=== PATIENT | female | born 1975 | race African-American/Black ===

== ENCOUNTER 2024-12-01 13:35 | Inpatient (IN) | payer BC, OTHER ==
[~2024-12-01] VITALS: Ht 165.1 cm; Wt 60.8 kg
[2024-12-01] MEDS: DEXTROSE 50% WATER 50ML SYRINGE IV ONE (14:12)
[2024-12-01] MEDS: SODIUM CHLORIDE 0.9% 1,000 ML IV ONE (14:12)
[2024-12-01 14:31] LABS: BASOPHILS % 0.6 % (0.0-2.0); EOSINOPHILS % 1.4 % (0.0-5.0); HEMATOCRIT. 46.4 % (36.0-48.0); HEMOGLOBIN. 14.5 g/dL (12.0-16.0); LYMPHOCYTES % 28.2 % (20.0-50.0); MEAN PLATELET VOLUME 8.3 fl (7.4-10.4); MONOCYTES % 6.4 % (2.0-8.0); NEUTROPHILS % 63.4 % (40.0-76.0); PLATELET 453 x1000/uL (130-400); RED BLOOD CELL COUNT 5.23 mill/uL (4.2-5.4); RED CELL DISTRIBUTION WIDTH 17.9 % (11.6-14.6)
[2024-12-01 14:58] LABS: CLARITY URINE CLEAR (CLEAR); COLOR URINE YELLOW (YELLOW); GLUCOSE URINE 3+ (NEGATIVE); KETONES URINE NEGATIVE (NEGATIVE); LEUKOCYTE ESTERASE URINE 1+ (NEGATIVE); NITRITE URINE NEGATIVE (NEGATIVE); OCCULT BLOOD URINE NEGATIVE (NEGATIVE); PH URINE 8.0 (4.5-8.0); PROTEIN URINE 3+ (NEGATIVE); SPECIFIC GRAVITY URINE 1.015 (1.005-1.030); UROBILINOGEN URINE 0.2 E.U./dL (0.2-1.0)
[2024-12-01 15:03] LABS: HCG SCREEN NEGATIVE
[2024-12-01] MEDS: MORPHINE SULFATE 2 MG/ML INJ (NOT FOR IM USE) IV SCH (15:06)
[2024-12-01 15:25] LABS: *AMPHETAMINES SCREEN URINE NEGATIVE (NEGATIVE); *BARBITURATES SCREEN URINE NEGATIVE (NEGATIVE); *BENZODIAZEPINES SCREEN URINE NEGATIVE (NEGATIVE); *COCAINE SCREEN URINE NEGATIVE (NEGATIVE); METHADONE URINE SCREEN NEGATIVE (NEGATIVE)
[2024-12-01 15:26] LABS: CANNABINOID URINE SCREEN PRESUMPTIVE POSITIVE (NEGATIVE); ECSTASY MDMA SCREEN URINE NEGATIVE (NEGATIVE); OPIATES URINE SCREEN NEGATIVE (NEGATIVE); PHENCYCLIDINE URINE SCREEN NEGATIVE (NEGATIVE)
[2024-12-01 15:27] LABS: SQUAMOUS EPITHELIAL CELL URINE FEW /lpf (RARE/1+)
[2024-12-01 15:28] LABS: WBC URINE 50-100 /hpf (0-2)
[2024-12-01 15:29] LABS: BACTERIA URINE 2+; RBC URINE NONE SEEN /hpf (0-2)
[2024-12-01] MEDS: CEFTRIAXONE 1GM/50ML 50 ML IV SCH (16:27)
[2024-12-01] MEDS: HYDRALAZINE 20MG/ML VIAL IV SCH (16:27)
[2024-12-01 16:32] LABS: CREATININE 1.0 mg/dL (0.6-1.0); UREA NITROGEN BLOOD 16 mg/dL (9-23)
[2024-12-01 16:33] LABS: ETHANOL BLOOD < 10 mg/dL (<10)
[2024-12-01 16:34] LABS: ASPARTATE AMINOTRANSFERASE 28 IU/L (<34); BILIRUBIN DIRECT 0.2 mg/dL (<=3.0)
[2024-12-01 16:35] LABS: BILIRUBIN TOTAL 0.6 mg/dL (0.1-1.0); PROTEIN TOTAL 7.2 g/dL (6.0-8.3)
[2024-12-01 16:39] LABS: TROPONIN I HIGH SENSITIVITY 85 ng/L (3.0-34)
[2024-12-01] MEDS: LOSARTAN 100 MG TABLET PO ONE (16:44)
[2024-12-01] MEDS: POTASSIUM CHLORIDE 20MEQ TABLET SR PO SCH (17:03)
[2024-12-01] MEDS ORDERED: DOCUSATE SODIUM 100MG CAPSULE PO PRN (17:30)
[2024-12-01] MEDS ORDERED: CEFTRIAXONE 1GM/50ML 50 ML IV ONE (17:30)
[2024-12-01] MEDS ORDERED: ACETAMINOPHEN 325MG TABLET PO PRN ×2 (17:30)
[2024-12-01 17:40] VITALS: BP 181/91; PULSE 110; RESP 20; TEMP 36.2; O2SAT 95
[2024-12-01] MEDS ORDERED: IPRATROPIUM/ALBUTEROL 0.5-3(2.5)MG/3ML NEB HHN SCH (17:45)
[2024-12-01] MEDS ORDERED: CLONIDINE 0.1MG TABLET PO PRN (17:45)
[2024-12-01] MEDS: INSULIN LISPRO 100 UNITS/ML SUBCUT SCH (17:50)
[2024-12-01 18:08] LABS: BG BASE EXCESS 6.5 mmol/L (-2.0-3.0); BG CARBOXYHEMOGLOBIN 1.3 % (0.5-1.5); BG DEOXYHEMOGLOBIN 10.7 % (0.0-5.0); BG FRACTION INSPIRED OXYGEN 36; BG HCO3 ACT 29.3 mmol/L (21.0-28.0); BG METHEMOGLOBIN 0.3 % (0.5-1.5); BG OXYGEN SATURATION 89.1 % (94.0-98.0); BG OXYHEMOGLOBIN 87.7 % (94.0-98.0); BG PCO2 35.6 mmHg (32.0-45.0); BG PH 7.533 (7.350-7.450); BG PO2 50.4 mmHg (83.0-108.0); BG SAMPLE SITE RIGHT RADIAL; BG TOTAL HEMOGLOBIN 12.8 g/dL (12.0-16.0); BG VENT MODE NASAL CANNULA
[2024-12-01] MEDS: ASPIRIN 325MG EC TABLET PO NR (18:35)
[2024-12-01] MEDS: FUROSEMIDE 100MG/10ML VIAL IVP SCH (18:35)
[2024-12-01] MEDS: CLOPIDOGREL 75MG TABLET PO SCH (18:36)
[2024-12-01] MEDS: CLONIDINE 0.1MG TABLET PO PRN (18:36)
[2024-12-01] MEDS: SPIRONOLACTONE 25MG TABLET PO SCH (18:36)
[2024-12-01] MEDS: MAGNESIUM 2 G PREMIX 50 ML IV SCH (18:36)
[2024-12-01] MEDS: KCL 20MEQ/100ML PREMIX 100 ML IV SCH (18:55)
[2024-12-01] MEDS: DEXTROSE 50% WATER 50ML SYRINGE IV PRN (19:00)
[2024-12-01 20:00] VITALS: BP 159/77; PULSE 95; RESP 20; TEMP 36.1; O2SAT 99
[2024-12-01] MEDS: BLOOD SUGAR DIAGNOSTIC STRIP TEST SCH (21:58)
[2024-12-01] MEDS: ATORVASTATIN CALCIUM 40MG TABLET PO SCH (21:58)
[2024-12-01] MEDS: KETOROLAC 15MG/ML VIAL IV PRN (21:59)
[2024-12-01] MEDS: ENOXAPARIN 40MG/0.4ML SYR SUBCUT SCH (22:00)
[2024-12-01 22:28] LABS: PHOSPHORUS 2.5 mg/dL (2.5-4.9)
[2024-12-01 22:29] LABS: BG BASE EXCESS 7.3 mmol/L (-2.0-3.0); BG CARBOXYHEMOGLOBIN 0.8 % (0.5-1.5); BG DEOXYHEMOGLOBIN 3.4 % (0.0-5.0); BG FLOW(L/min) 4.00 L/min; BG FRACTION INSPIRED OXYGEN 36; BG HCO3 ACT 31.3 mmol/L (21.0-28.0); BG METHEMOGLOBIN 0.0 % (0.5-1.5); BG OXYGEN SATURATION 96.6 % (94.0-98.0); BG OXYHEMOGLOBIN 95.8 % (94.0-98.0); BG PCO2 41.7 mmHg (32.0-45.0); BG PH 7.493 (7.350-7.450); BG PO2 82.2 mmHg (83.0-108.0); BG SAMPLE SITE LEFT BRACHIAL; BG TOTAL HEMOGLOBIN 12.0 g/dL (12.0-16.0); BG VENT MODE NASAL CANNULA
[2024-12-01 23:43] VITALS: BP 159/77; PULSE 95; RESP 18; TEMP 36.0844
[2024-12-02] VITALS: BP 142/74; PULSE 94; RESP 20; TEMP 36.6; O2SAT 98
[2024-12-02] MEDS: GLUCAGON,HUMAN RECOMBINANT 1MG/VIAL IM NR (01:03)
[2024-12-02] MEDS: DEXT 10% WATER 1,000 ML IV SCH (02:07)
[2024-12-02 03:01] LABS: CREATINE KINASE MB FRACTION 3.4 ng/mL (0.5-3.6)
[2024-12-02 04:00] VITALS: BP 150/58; PULSE 98; RESP 20; TEMP 36.3; O2SAT 97
[2024-12-02 04:31] LABS: TROPONIN I HIGH SENSITIVITY 85.0 ng/L (3.0-34)
[2024-12-02] MEDS: FUROSEMIDE 40MG/4ML VIAL IVP SCH (06:56)
[2024-12-02] MEDS: LEVOTHYROXINE SODIUM 100MCG TABLET PO SCH (06:57)
[2024-12-02 08:00] VITALS: BP 132/80; PULSE 95; RESP 16; TEMP 36.2; O2SAT 100
[2024-12-02 10:30] LABS: MEAN PLATELET VOLUME 8.9 fl (7.4-10.4); PLATELET 376 x1000/uL (130-400); RED BLOOD CELL COUNT 3.76 mill/uL (4.2-5.4); RED CELL DISTRIBUTION WIDTH 17.5 % (11.6-14.6)
[2024-12-02 10:50] LABS: HEMATOCRIT. 32.2 % (36.0-48.0); HEMOGLOBIN. 10.3 g/dL (12.0-16.0)
[2024-12-02] MEDS ORDERED: NALOXONE HCL 0.4MG/ML VIAL IV PRN (11:00)
[2024-12-02] MEDS ORDERED: DEXTROSE 50% WATER 50ML SYRINGE IV PRN (11:00)
[2024-12-02 11:11] LABS: TROPONIN I HIGH SENSITIVITY 87.0 ng/L (3.0-34)
[2024-12-02 11:15] LABS: CREATININE 1.2 mg/dL (0.6-1.0)
[2024-12-02 11:16] LABS: UREA NITROGEN BLOOD 24.0 mg/dL (9-23)
[2024-12-02 11:21] LABS: CREATINE KINASE MB FRACTION 2.5 ng/mL (0.5-3.6)
[2024-12-02] MEDS: ASPIRIN 81MG TABLET PO SCH (11:21)
[2024-12-02] MEDS: PANTOPRAZOLE SODIUM 40 MG/VIAL IV SCH (11:21)
[2024-12-02] MEDS: POTASSIUM CHLORIDE 20MEQ/PACKET PO SCH ×2 (11:21→14:08)
[2024-12-02 11:23] LABS: T4 FREE 1.41 ng/dL (0.89-1.76)
[2024-12-02 12:00] VITALS: BP 135/89; PULSE 105; RESP 18; TEMP 37.2; O2SAT 98
[2024-12-02 12:02] LABS: HEPATITIS C AB NON REACTIVE (Neg) (Negative)
[2024-12-02] MEDS: BLOOD SUGAR DIAGNOSTIC STRIP TEST SCH (12:20)
[2024-12-02] MEDS: INSULIN LISPRO 100 UNITS/ML SUBCUT SCH (12:50)
[2024-12-02] MEDS: ISOSORBIDE MONONITRATE 30MG TABLET SR 24HR PO SCH (14:07)
[2024-12-02 16:00] VITALS: BP 138/85; PULSE 103; RESP 18; TEMP 36.9; O2SAT 98
[2024-12-02 16:36] LABS: LYMPHOCYTES % MANUAL 44.0 % (20.0-60.0); MONOCYTES % MANUAL 6.0 % (2.0-8.0); NEUTROPHILS % MANUAL 50.0 % (45.0-75.0); PLATELET ESTIMATE NORMAL
[2024-12-02] MEDS: CEFTRIAXONE 1GM/50ML 50 ML IV SCH (18:52)
[2024-12-02] MEDS: HYDROCODONE/ACETAMINOPHEN 5/325MG TABLET PO PRN (18:55)
[2024-12-02 20:00] VITALS: BP 131/82; PULSE 110; RESP 20; TEMP 37.1; O2SAT 97
[2024-12-02 22:47] LABS: TROPONIN I HIGH SENSITIVITY 70 ng/L (3.0-34)
[2024-12-03] VITALS (11 sets, daily range): BP systolic 134–166; BP diastolic 80–107; PULSE 102–114; RESP 15–20; TEMP 36.1–36.8; O2SAT 95–99
[2024-12-03] MEDS: IPRATROPIUM/ALBUTEROL 0.5-3(2.5)MG/3ML NEB HHN SCH (00:28)
[2024-12-03 03:38] LABS: TROPONIN I HIGH SENSITIVITY 70 ng/L (3.0-34)
[2024-12-03] MEDS ORDERED: SPIRONOLACTONE 25MG TABLET PO SCH (09:00)
[2024-12-03 10:09] LABS: CREATININE 1.2 mg/dL (0.6-1.0)
[2024-12-03 10:11] LABS: UREA NITROGEN BLOOD 23.0 mg/dL (9-23)
[2024-12-03 10:22] LABS: HEMATOCRIT. 28.5 % (36.0-48.0); HEMOGLOBIN. 9.2 g/dL (12.0-16.0); MEAN PLATELET VOLUME 9.3 fl (7.4-10.4); PLATELET 362 x1000/uL (130-400); RED BLOOD CELL COUNT 3.38 mill/uL (4.2-5.4); RED CELL DISTRIBUTION WIDTH 17.5 % (11.6-14.6)
[2024-12-03 10:28] LABS: TRIGLYCERIDE 88.0 mg/dL (0-150)
[2024-12-03 10:29] LABS: LDL CHOLESTEROL 94.0 mg/dL (5-100)
[2024-12-03 10:33] LABS: T4 FREE 1.21 ng/dL (0.89-1.76)
[2024-12-03 11:48] LABS: ERYTHROCYTE SEDIMENTATION RATE 20 mm/hr (0-20)
[2024-12-03] MEDS ORDERED: POTASSIUM CHLORIDE 40 MEQ in DEXT 5% WATER 230 ML IV ONE (12:00)
[2024-12-03] MEDS ORDERED: KCL 20MEQ/100ML X 2 FOR TOTAL KCL 40MEQ/200ML IV SCH (12:00)
[2024-12-03] MEDS ORDERED: POTASSIUM CHLORIDE 20MEQ/PACKET PO ONE (14:15)
[2024-12-03] MEDS: SACUBITRIL/VALSARTAN 24MG/26MG TABLET PO SCH (14:27)
[2024-12-03] MEDS: KCL 20MEQ/100ML PREMIX 100 ML IV SCH (14:28)
[2024-12-03] MEDS: POTASSIUM CHLORIDE 20MEQ/PACKET PO SCH (14:28)
[2024-12-03] MEDS: POTASSIUM CHLORIDE 20MEQ TABLET SR PO SCH (21:20)
[2024-12-03] MEDS: CARVEDILOL 3.125 MG TABLET PO SCH (21:22)
[2024-12-03 22:00] LABS: TROPONIN I HIGH SENSITIVITY 57.0 ng/L (3.0-34)
[2024-12-04] VITALS (9 sets, daily range): BP systolic 139–166; BP diastolic 83–100; PULSE 75–115; RESP 15–19; TEMP 36.4–36.7; O2SAT 96–100
[2024-12-04 07:39] LABS: EOSINOPHILS % MANUAL 4.0 % (0.0-5.0); LYMPHOCYTES % MANUAL 46.0 % (20.0-60.0); MONOCYTES % MANUAL 9.0 % (2.0-8.0); NEUTROPHILS % MANUAL 41.0 % (45.0-75.0); PLATELET ESTIMATE NORMAL
[2024-12-04 09:40] LABS: HEMATOCRIT. 31.8 % (36.0-48.0); HEMOGLOBIN. 10.0 g/dL (12.0-16.0); MEAN PLATELET VOLUME 9.3 fl (7.4-10.4); PLATELET 362 x1000/uL (130-400); RED BLOOD CELL COUNT 3.70 mill/uL (4.2-5.4); RED CELL DISTRIBUTION WIDTH 17.4 % (11.6-14.6)
[2024-12-04 10:03] LABS: CREATININE 1.0 mg/dL (0.6-1.0); UREA NITROGEN BLOOD 18 mg/dL (9-23)
[2024-12-04 10:22] LABS: TROPONIN I HIGH SENSITIVITY 62 ng/L (3.0-34)
[2024-12-04 14:06] LABS: EOSINOPHILS % MANUAL 5.0 % (0.0-5.0); LYMPHOCYTES % MANUAL 47.0 % (20.0-60.0); MONOCYTES % MANUAL 5.0 % (2.0-8.0); NEUTROPHILS % MANUAL 43.0 % (45.0-75.0)
[2024-12-04 14:07] LABS: PLATELET ESTIMATE NORMAL
[2024-12-04] MEDS: IPRATROPIUM/ALBUTEROL 0.5-3(2.5)MG/3ML NEB HHN PRN (15:53)
[2024-12-04 19:51] LABS: TROPONIN I HIGH SENSITIVITY 113 ng/L (3.0-34)
[2024-12-05] VITALS (9 sets, daily range): BP systolic 125–161; BP diastolic 71–99; PULSE 76–105; RESP 16–19; TEMP 36.1–36.8; O2SAT 95–99
[2024-12-05 07:29] LABS: PLATELET 308 x1000/uL (130-400); RED BLOOD CELL COUNT 3.31 mill/uL (4.2-5.4); RED CELL DISTRIBUTION WIDTH 17.9 % (11.6-14.6)
[2024-12-05 07:41] LABS: CREATININE 1.2 mg/dL (0.6-1.0); UREA NITROGEN BLOOD 18 mg/dL (9-23)
[2024-12-05 07:43] LABS: PHOSPHORUS 3.2 mg/dL (2.5-4.9)
[2024-12-05] MEDS ORDERED: PREG100C55 PO (13:58)
[2024-12-05] MEDS: HYDROCODONE/ACETAMINOPHEN 10/325MG TABLET PO PRN (19:41)
[2024-12-05] MEDS: PREGABALIN 50 MG CAPSULE PO SCH (20:38)
[2024-12-06] VITALS (8 sets, daily range): BP systolic 122–153; BP diastolic 83–94; PULSE 92–111; RESP 16–20; TEMP 36.1–36.8; O2SAT 98–100
[2024-12-06] MEDS ORDERED: POTASSIUM CHLORIDE 20 MEQ in DEXT 5% WATER 90 ML IV ONE (08:30)
[2024-12-06] MEDS: KCL 20MEQ/100ML PREMIX 100 ML IV NR (09:00)
[2024-12-06] MEDS: MAGNESIUM 2 G PREMIX 50 ML IV NR ×2 (10:32→10:35)
[2024-12-06] MEDS: POTASSIUM CHLORIDE 20MEQ TABLET SR PO SCH (12:52)
[2024-12-06 19:01] LABS: BASOPHILS % 1.3 % (0.0-2.0); EOSINOPHILS % 6.6 % (0.0-5.0); HEMATOCRIT. 27.4 % (36.0-48.0); HEMOGLOBIN. 8.8 g/dL (12.0-16.0); LYMPHOCYTES % 47.5 % (20.0-50.0); MEAN PLATELET VOLUME 8.9 fl (7.4-10.4); MONOCYTES % 7.7 % (2.0-8.0); NEUTROPHILS % 36.9 % (40.0-76.0); PLATELET 311 x1000/uL (130-400); RED BLOOD CELL COUNT 3.21 mill/uL (4.2-5.4); RED CELL DISTRIBUTION WIDTH 18.1 % (11.6-14.6)
[2024-12-06 19:09] LABS: INR 1.0
[2024-12-06 19:19] LABS: CREATININE 1.5 mg/dL (0.6-1.0); UREA NITROGEN BLOOD 16 mg/dL (9-23)
[2024-12-06 19:21] LABS: PHOSPHORUS 2.6 mg/dL (2.5-4.9)
[2024-12-07] VITALS (8 sets, daily range): BP systolic 131–165; BP diastolic 79–97; PULSE 88–108; RESP 15–21; TEMP 36.2–37.1; O2SAT 93–100
[2024-12-07] MEDS ORDERED: HEPARIN 1000 UNITS/ML 10ML ONE (14:05)
[2024-12-07] MEDS ORDERED: IODIXANOL 320MG/ML 100 ML BOTTLE IV ONE ×2 (14:05→19:38)
[2024-12-07] MEDS ORDERED: LIDOCAINE HCL 1% 20ML VIAL ONE ×2 (14:05→19:38)
[2024-12-07] MEDS ORDERED: MIDAZOLAM HCL 2 MG/2 ML VIAL ONE (19:38)
[2024-12-07] MEDS ORDERED: FENTANYL CITRATE/PF 50MCG/ML 2ML VIAL ONE (19:38)
[2024-12-07] MEDS ORDERED: CLOPIDOGREL 75MG TABLET ONE (20:16)
[2024-12-07] MEDS: SODIUM CHLORIDE 0.45% 1,000 ML IV SCH (20:45)
[2024-12-07] MEDS ORDERED: ATROPINE SULFATE 1MG/10ML SYR IV PRN (20:45)
[2024-12-08] VITALS: BP 151/94; PULSE 109; RESP 19; TEMP 36.6; O2SAT 96
[2024-12-08 04:00] VITALS: BP 151/96; PULSE 108; RESP 12; TEMP 36.4; O2SAT 96
[2024-12-08 08:00] VITALS: BP 175/102; PULSE 115; RESP 14; TEMP 37.2; O2SAT 91
[2024-12-08 08:25] LABS: BASOPHILS % 1.0 % (0.0-2.0); EOSINOPHILS % 3.4 % (0.0-5.0); HEMATOCRIT. 31.8 % (36.0-48.0); LYMPHOCYTES % 27.3 % (20.0-50.0); MEAN PLATELET VOLUME 8.5 fl (7.4-10.4); MONOCYTES % 7.2 % (2.0-8.0); NEUTROPHILS % 61.1 % (40.0-76.0); PLATELET 332 x1000/uL (130-400); RED BLOOD CELL COUNT 3.74 mill/uL (4.2-5.4); RED CELL DISTRIBUTION WIDTH 18.0 % (11.6-14.6)
[2024-12-08 08:29] LABS: HEMOGLOBIN. 10.2 g/dL (12.0-16.0)
[2024-12-08] MEDS: CLOPIDOGREL 75MG TABLET PO SCH (08:35)
[2024-12-08] MEDS: CARVEDILOL 6.25 MG TABLET PO SCH (08:37)
[2024-12-08 08:43] LABS: CREATININE 1.6 mg/dL (0.6-1.0); UREA NITROGEN BLOOD 17.0 mg/dL (9-23)
[2024-12-08 12:00] VITALS: BP 125/75; PULSE 95; RESP 19; TEMP 37.2; O2SAT 93
[2024-12-08] MEDS ORDERED: SACUBITRIL/VALSARTAN 24MG/26MG TABLET PO SCH (15:00)
[2024-12-08] MEDS: FUROSEMIDE 40MG/4ML VIAL IVP SCH (15:47)
[2024-12-08 16:00] VITALS: BP 127/86; PULSE 102; RESP 15; TEMP 37.1; O2SAT 99
[2024-12-08 20:00] VITALS: BP 137/84; PULSE 106; RESP 16; TEMP 36.9; O2SAT 97
[2024-12-08] MEDS ORDERED: NALOXONE HCL 0.4MG/ML VIAL IV PRN (22:30)
[2024-12-08] MEDS: INSULIN LISPRO 100 UNITS/ML SUBCUT SCH (22:54)
[2024-12-09] VITALS: BP 139/111; PULSE 107; RESP 16; TEMP 36.9; O2SAT 99
[2024-12-09] MEDS: INSULIN REGULAR (HUMULIN R) 1000UNITS/10ML VIAL IV NR (01:11)
[2024-12-09] MEDS ORDERED: DEXTROSE 50% WATER 50ML SYRINGE IV PRN (02:15)
[2024-12-09 04:00] VITALS: BP 113/65; PULSE 101; RESP 15; TEMP 36.6; O2SAT 97
[2024-12-09] MEDS: DEXTROSE 50% WATER 50ML SYRINGE IV PRN (06:33)
[2024-12-09] MEDS: INSULIN LISPRO 100 UNITS/ML SUBCUT SCH (07:20)
[2024-12-09 07:56] LABS: BASOPHILS % 0.5 % (0.0-2.0); EOSINOPHILS % 4.2 % (0.0-5.0); HEMATOCRIT. 28.4 % (36.0-48.0); HEMOGLOBIN. 9.3 g/dL (12.0-16.0); LYMPHOCYTES % 44.8 % (20.0-50.0); MEAN PLATELET VOLUME 8.5 fl (7.4-10.4); MONOCYTES % 10.3 % (2.0-8.0); NEUTROPHILS % 40.2 % (40.0-76.0); PLATELET 322 x1000/uL (130-400); RED BLOOD CELL COUNT 3.37 mill/uL (4.2-5.4); RED CELL DISTRIBUTION WIDTH 18.3 % (11.6-14.6)
[2024-12-09 08:00] VITALS: BP 175/102; PULSE 115; RESP 14; TEMP 36.7; O2SAT 98
[2024-12-09 08:28] LABS: CREATININE 1.5 mg/dL (0.6-1.0); UREA NITROGEN BLOOD 20.0 mg/dL (9-23)
[2024-12-09] MEDS ORDERED: INSULIN GLARGINE 100 UNITS/ML SUBCUT SCH (10:00)
[2024-12-09] MEDS: DEXT 10% WATER 500 ML IV ONE (10:02)
[2024-12-09] MEDS: POTASSIUM CHLORIDE 20MEQ/PACKET PO NR (10:04)
[2024-12-09 10:05] LABS: PHOSPHORUS 2.4 mg/dL (2.5-4.9)
[2024-12-09] MEDS ORDERED: METHOTREXATE SODIUM 2 . 5MG TABLET PO SCH (11:15)
[2024-12-09 12:00] VITALS: BP 132/93; PULSE 107; RESP 20; TEMP 37.4; O2SAT 99
[2024-12-09] MEDS: METHYLPREDNISOLONE SOD SUCC 40MG/ML (ACT-O-VIAL) IV SCH ×2 (13:45→21:46)
[2024-12-09] MEDS: FOLIC ACID 1MG TABLET PO SCH (13:45)
[2024-12-09] MEDS: HYDROXYCHLOROQUINE SULFATE 200MG TABLET PO SCH (13:45)
[2024-12-09] MEDS: PILOCARPINE HCL 5MG TABLET PO SCH (13:50)
[2024-12-09] MEDS: NITROGLYCERIN OINT 1GM/INCH UDPKT TD SCH (13:50)
[2024-12-09] MEDS: PILOCARPINE HCL 2% OPHTH DROPS 15ML EACHEYE SCH (13:50)
[2024-12-09] MEDS: DICYCLOMINE HCL 20MG TABLET PO SCH (13:52)
[2024-12-09 16:00] VITALS: BP 124/64; PULSE 102; RESP 13; TEMP 36.8; O2SAT 97
[2024-12-09 20:00] VITALS: BP 114/65; PULSE 102; RESP 15; TEMP 36.9; O2SAT 99
[2024-12-09] MEDS: HYDROCORTISONE 2.5% CREAM 28GM TOP SCH (21:46)
[2024-12-09] MEDS: TRIAMCINOLONE ACETONIDE 0.1% CREAM 15GM TOP SCH (21:47)
[2024-12-09] MEDS: BUPROPION HCL 75MG TABLET PO SCH (22:00)
[2024-12-10] VITALS: BP 112/69; PULSE 101; RESP 15; TEMP 36.8; O2SAT 99
[2024-12-10 04:00] VITALS: BP 117/59; PULSE 87; RESP 16; TEMP 36.6; O2SAT 95
[2024-12-10] MEDS: METHOTREXATE SODIUM 2 . 5MG TABLET PO SCH ×2 (06:28→13:27)
[2024-12-10 08:00] VITALS: BP 135/88; PULSE 89; RESP 18; TEMP 36.6; O2SAT 98
[2024-12-10] MEDS: INSULIN LISPRO 100 UNITS/ML SUBCUT SCH (09:04)
[2024-12-10] MEDS: INSULIN GLARGINE 100 UNITS/ML SUBCUT SCH (09:04)
[2024-12-10] MEDS ORDERED: INSULIN GLARGINE 100 UNITS/ML SUBCUT SCH ×2 (10:00→11:50)
[2024-12-10 12:00] VITALS: BP 127/86; PULSE 95; RESP 13; TEMP 36.9; O2SAT 98
[2024-12-10] MEDS ORDERED: CLOP-31 PO (14:59)
[2024-12-10] MEDS ORDERED: COR6 PO (14:59)
[2024-12-10] MEDS ORDERED: ASPI-1160 PO (14:59)
[2024-12-10] MEDS ORDERED: LIP40 PO (14:59)
[2024-12-10] MEDS ORDERED: PILO5TAB17 PO (14:59)
[2024-12-10] MEDS ORDERED: LEVO100T9 PO (14:59)
[2024-12-10] MEDS ORDERED: BUPR75TA8 PO (14:59)
[2024-12-10] MEDS ORDERED: SACU1TAB PO (14:59)
[2024-12-10] MEDS ORDERED: LANTUSUD SUBCUT (14:59)
[2024-12-10] MEDS ORDERED: ISOS30TA91 PO (14:59)
[2024-12-10] MEDS ORDERED: METH2.5T MT (14:59)
[2024-12-10] MEDS ORDERED: PILO2O EACHEYE (14:59)
[2024-12-10] MEDS ORDERED: HYDR200T35 PO (14:59)
[2024-12-10] MEDS ORDERED: FURO-151 PO (14:59)
[2024-12-10] MEDS ORDERED: PRED10TA23 PO ×2 (14:59)
[2024-12-10] MEDS ORDERED: FOLI-43 PO (14:59)
[2024-12-10] MEDS ORDERED: PREG50CA PO (15:27)
[2024-12-10 16:00] VITALS: BP 110/63; PULSE 94; RESP 21; TEMP 36.8; O2SAT 100
[2024-12-10 17:46] VITALS: BP 110/63; PULSE 94; TEMP 98.2; O2SAT 100
[2024-12-10] MEDS: PREDNISONE 10MG TABLET PO SCH (18:09)
[2024-12-10] MEDS ORDERED: METHOTREXATE SODIUM 2 . 5MG TABLET PO SCH (22:00)
[2024-12-11 09:11] LABS: COMPLEMENT C3 147 mg/dL (82-167); COMPLEMENT C4 27 mg/dL (12-38)
[2024-12-11 10:11] LABS: RNP ANTIBODY 0.9 AI (0.0-0.9); SMITH ANTIBODY 0.4 AI (0.0-0.9)
[2024-12-11 13:07] LABS: ANTI-DNA DOUBLE STRANDED QUANT 41 IU/mL (0-9)
[2024-12-13 15:07] LABS: ALDOLASE 4.0 U/L (3.3-10.3)
[2024-12-13 19:06] LABS: ACTIN (SMOOTH MUSCLE) ANTIBODY 13 Units (0-19)
[2024-12-14 06:12] LABS: ANGIOTENSION CONVERTING ENZYME 84 U/L (14-82)
[2024-12-15 06:13] LABS: ANTI-CARDIOLIPIN AB IGG < 9 GPL U/mL (0-14); ANTI-CARDIOLIPIN AB IGM 9 MPL U/mL (0-12)
[2024-12-15 17:10] LABS: ANTI-MYELOPEROXIDASE AB 0.2 units (0.0-0.9); ANTI-PROTEINASE 3 ABS < 0.2 units (0.0-0.9)
[2024-12-16 17:12] LABS: ATYPICAL P-ANCA <1:20 titer (Neg:<1:20); CYTOPLASMIC C-ANCA <1:20 titer (Neg:<1:20); PERINUCLEAR P-ANCA <1:20 titer (Neg:<1:20)
== END 2024-12-10 18:39 | disposition home or self-care (01) | DRG 321 ==
LOC: ER 13:35 → 6WST 14:54 → EDBEDREQ 15:03 → EDBEDREQTM 15:03 → ENRESERV 16:26 → 3WST 12-07 20:45
PROVIDERS: ADMIT Internal Medicine; ATTEND Internal Medicine
PROC: 027034Z Dilation of Coronary Artery, One Artery with Drug-eluting Intraluminal Device, Percutaneous Approach (ICD-10-PCS; principal; 2024-12-07)
PROC: B240ZZ3 Ultrasonography of Single Coronary Artery, Intravascular (ICD-10-PCS; 2024-12-07)
PROC: 4A023N7 Measurement of Cardiac Sampling and Pressure, Left Heart, Percutaneous Approach (ICD-10-PCS; 2024-12-07)
PROC: B211YZZ Fluoroscopy of Multiple Coronary Arteries using Other Contrast (ICD-10-PCS; 2024-12-07)
PROC: B215YZZ Fluoroscopy of Left Heart using Other Contrast (ICD-10-PCS; 2024-12-07)
DX: I25.10 Atherosclerotic heart disease of native coronary artery without angina pectoris (principal); I21.A1 Myocardial infarction type 2; I50.23 Acute on chronic systolic (congestive) heart failure; J96.01 Acute respiratory failure with hypoxia; I13.0 Hypertensive heart and chronic kidney disease with heart failure and stage 1 through stage 4 chronic kidney disease, or unspecified chronic kidney disease; N13.6 Pyonephrosis; I42.9 Cardiomyopathy, unspecified; E87.6 Hypokalemia; E11.649 Type 2 diabetes mellitus with hypoglycemia without coma; E03.9 Hypothyroidism, unspecified; E78.00 Pure hypercholesterolemia, unspecified; K21.9 Gastro-esophageal reflux disease without esophagitis; M79.7 Fibromyalgia; Z90.81 Acquired absence of spleen; M35.00 Sjogren syndrome, unspecified; D64.9 Anemia, unspecified; M32.14 Glomerular disease in systemic lupus erythematosus; E11.22 Type 2 diabetes mellitus with diabetic chronic kidney disease; I73.00 Raynaud's syndrome without gangrene; N18.9 Chronic kidney disease, unspecified; Z79.4 Long term (current) use of insulin; Z79.84 Long term (current) use of oral hypoglycemic drugs; Z79.899 Other long term (current) drug therapy
CPT/HCPCS: 36415; 36600; 71045; 74176; 80048; 80061; 80076; 80305; 80320; 81003; 82085; 82164; 82375; 82550; 82553; 82728; 82805; 82955; 82962; 83036; 83516; 83520; 83540; 83550; 83605; 83735; 83880; 84100; 84132; 84439; 84443; 84481; 84484; 84703; 85025; 85027; 85041; 85347; 85379; 85651; 86147; 86160; 86225; 86235; 86256; 86332; 86431; 86705; 87340; 92928; 92978; 93005; 93306; 93458; 94070; 94640; 94664; 94760; 98960; 99291; A4606; C1725; C1753; C1769; C1874; C1887; C1893; J0360; J0696; J1610; J1644; J1650; J1815; J1885; J1938; J2003; J2250; J2270; J2470; J2919; J3010; J3475; J3480; J7030; J7512; J8610; Q9967; G0480